=== PATIENT | female | born 1970 | race Caucasian/White ===

== ENCOUNTER 2016-06-17 18:03 | Emergency (ER) | payer OTHER ==
[2016-06-17 18:20] VITALS: RESP 16
--- NOTE | 2016-06-17 19:07 | ED ---
General Adult HPI - General Chief complaint: Headache Stated complaint: Headache Time Seen by Provider: 06/17/16 18:46 Source: patient, family, RN notes reviewed Mode of arrival: ambulatory Limitations: no limitations - History of Present Illness Initial comments: 46-year-old female presenting for headache. Patient states she gets recurrent tension headaches in the back of her neck that goes up her posterior scalp and over her head. She states she's had a persistent headache for the past 5 days. She states that she has worsening symptoms with motion and standing up. She denies any visual changes or photophobia associated. States is similar to prior headaches. She denies any fevers or chills. She denies any focal neurological deficits. She has tried Tylenol and Motrin without good relief of pain. States she has had extensive neurological workup several years ago when headaches started, but she does not routinely follow with a neurologist. - Related Data Home Medications Medication Instructions Recorded Confirmed Acetaminophen Tab [Tylenol Tab] 650 mg PO TID PRN 06/17/16 06/17/16 Cetirizine HCl [Zyrtec] 10 mg PO DAILY PRN 06/17/16 06/17/16 Ibuprofen [Motrin] 800 mg PO TID PRN 06/17/16 06/17/16 Multivit with Calcium,Iron,Min 1 tab PO DAILY 06/17/16 06/17/16 [Women's Multivitamin] metFORMIN HCL [Glucophage] 500 mg PO HS 06/17/16 06/17/16 Previous Rx's Medication Instructions Recorded Diazepam [Valium] 5 mg PO BID PRN #8 tab 06/17/16 Ibuprofen [Motrin] 800 mg PO Q8HR PRN #21 tab 06/17/16 Prochlorperazine [Compazine] 10 mg PO Q8H PRN #9 tab 06/17/16 diphenhydrAMINE [Benadryl] 25 mg PO TID PRN #9 capsule 06/17/16 Allergies Allergy/AdvReac Type Severity Reaction Status Date / Time Penicillins Allergy Anaphylaxis Verified 06/17/16 20:03 /Rash Review of Systems ROS Statement: Those systems with pertinent positive or pertinent negative responses have been documented in the HPI. ROS Other: All systems not noted in ROS Statement are negative. Past Medical History Past Medical History: Diabetes Mellitus, Hypertension Additional Past Medical History / Comment(s): headaches History of Any Multi-Drug Resistant Organisms: None Reported Past Surgical History: Section Additional Past Surgical History / Comment(s): tendon left foot Past Psychological History: No Psychological Hx Reported Smoking Status: Never smoker Past Alcohol Use History: None Reported Past Drug Use History: None Reported General Exam - General Exam Comments Initial Comments: General: Awake and Alert. No acute distress. Does not appear acutely ill. Obese. Eyes: ELISABETH, EOM intact. No nystagmus. No scleral icterus. HENT: Atraumatic, normocephalic. Mucous membranes moist. Trachea midline. Neck: The neck is supple, there is no tenderness or JVD. Cardiovascular: Regular rate and rhythm. No murmur, rub, or gallop is appreciated. Distal pulses intact. Respiratory: Lungs are clear to auscultation bilaterally. No wheezes, rales, rhonchi. No respiratory distress. Gastrointestinal: Soft, Nontender. No rebound or guarding. Non-distended. No masses or organomegaly noted. No CVA tenderness. Musculoskeletal: No tenderness. Normal ROM. No gross deformity. No strength deficits. Neurological: A&Ox3. CN II-XII grossly intact, There are no obvious motor or sensory deficits. Coordination appears grossly intact. Speech is normal. Normal gait. Skin: Skin is warm and dry and no rashes or lesions are noted. Psychiatric: Cooperative, appropriate mood & affect, normal judgment. Limitations: no limitations Course Vital Signs 06/17/16 18:16 Temperature 97.5 F L Pulse Rate 77 Respiratory 16 Rate Blood Pressure 155/75 O2 Sat by Pulse 97 Oximetry Medical Decision Making - Medical Decision Making 46-year-old female resenting for headache. Patient with history of similar recurrent headaches. Exam grossly unremarkable, no neurological deficits. Headache cocktail administered improvement of symptoms. Low suspicion of meningitis or severe infectious etiology at this time. Low suspicion for intracranial bleed. Low suspicion of IIH. Discussed continued management of symptoms at home, Rx provided. Recommend close PCP follow-up. Discussed possible benefit of chiropractic or neurological follow-up. Discussed concerning signs and symptoms for immediate return to the ED. Patient is agreeable with plan and discharge home. Disposition Clinical Impression: Nonintractable headache Disposition: HOME SELF-CARE Condition: Stable Instructions: Acute Headache (ED) Prescriptions: Diazepam [Valium] 5 mg PO BID PRN #8 tab PRN Reason: back spasm Ibuprofen [Motrin] 800 mg PO Q8HR PRN #21 tab PRN Reason: Headache Prochlorperazine [Compazine] 10 mg PO Q8H PRN #9 tab PRN Reason: Headache diphenhydrAMINE [Benadryl] 25 mg PO TID PRN #9 capsule PRN Reason: with compazine for headache Referrals: None,Stated [Primary Care Provider] - 1-2 days Time of Disposition: 21:00
[2016-06-17] MEDS: KETOROLAC 30 MG/ML 1 ML VIAL IVP STA (20:11)
[2016-06-17] MEDS: SODIUM CHLORIDE 0.9% 1,000 ML IV ONE (20:11)
[2016-06-17] MEDS: diphenhydrAMINE 50 MG/ML 1 ML VIAL IVP STA ×2 (20:12→20:38)
[2016-06-17] MEDS: METOCLOPRAMIDE 5 MG/ML 2 ML VIAL IVP STA (20:15)
[2016-06-17] MEDS: DIAZEPAM 5 MG TAB PO STA (20:43)
[2016-06-17 21:21] VITALS: BP 170/84; PULSE 89
[2016-06-17 21:30] VITALS: TEMP 98
== END 2016-06-17 21:30 | disposition home or self-care (01) ==
LOC: EC 18:03
DX: R51 Headache (principal); E11.9 Type 2 diabetes mellitus without complications; Z79.84 Long term (current) use of oral hypoglycemic drugs; Z79.899 Other long term (current) drug therapy; Z88.0 Allergy status to penicillin
CPT/HCPCS: 99283; 96374; 96375 ×2; 96361; J1200; J2765; J1885